=== PATIENT | male | born 1980 | race Caucasian/White ===

== ENCOUNTER 2023-05-10 14:29 | Emergency (ER) | payer OTHER ==
[~2023-05-10] VITALS: Ht 175.3 cm; Wt 64.4 kg
[2023-05-10 15:10] VITALS: BP 142/101; PULSE 100; RESP 16; TEMP 99.1; O2SAT 97
[2023-05-10] MEDS ORDERED: ACETAMINOPHEN EXTRA STRENGTH 500 MG TAB PO ONE (15:15)
[2023-05-10 15:35] LABS: BILIRUBIN,URINE 2+ (NEGATIVE); BLOOD, URINE 3+ (NEGATIVE); COLOR,URINE YELLOW (YELLOW); LEUKOCYTE ESTERASE ,URINE TRACE (NEGATIVE); NITRITE, URINE POSITIVE (NEGATIVE); PROTEIN,URINE 3+ (NEGATIVE); UGLUCOSE NEGATIVE (NEGATIVE)
[2023-05-10 16:10] LABS: APPEARANCE,URINE HAZY (CLEAR)
[2023-05-10 16:32] LABS: BACTERIA,URINE 3+ /HPF (None Seen); RBC,URINE TOO NUMEROUS TO COUN /HPF (0-5); SQUAMOUS EPITHELIAL CELL,UR None Seen /LPF (0-3 (FEW)); WBC,URINE TOO MANY TO COUNT /HPF (0-5)
[2023-05-10] MEDS ORDERED: ACETAMINOPHEN EXTRA STRENGTH 500 MG TAB ONE (17:02)
[2023-05-10] MEDS ORDERED: AZITHROMYCIN 250 MG TAB PO ONE (17:40)
[2023-05-10] MEDS ORDERED: cefTRIAXone 250 MG in LIDOCAINE MPF 1% 0.9 ML IM ONE (17:40)
[2023-05-10] MEDS ORDERED: LEVO-481 PO (18:06)
[2023-05-10] MEDS ORDERED: cefTRIAXone 250 MG VIAL ONE (18:30)
[2023-05-10] MEDS ORDERED: LIDOCAINE MPF 1% 5 ML ONE (18:30)
== END 2023-05-10 18:56 | disposition home or self-care (01) ==
LOC: MED 14:29
DX: N45.3 Epididymo-orchitis (principal); Z79.899 Other long term (current) drug therapy
CPT/HCPCS: 76870; 81001; 87086; 87491; 96372; 99285; J0696; J2001